=== PATIENT | female | born 1955 | race Caucasian/White ===

== ENCOUNTER 2019-04-01 07:42 | Day surgery (SDC) | payer OTHER ==
[2019-04-01] MEDS ORDERED: MEPERIDINE 100 MG INJ (09:36)
[2019-04-01] MEDS ORDERED: EPHEDrine SULFATE 50 MG/5 ML SYG (09:36)
[2019-04-01] MEDS ORDERED: PROPOFOL 20 ML (09:36)
[2019-04-01] MEDS ORDERED: EPHEDrine 25 MG/5 ML SYG (09:36)
[2019-04-01] MEDS ORDERED: LIDOCAINE 2% (SDV) 5 ML INJ (09:36)
[2019-04-01] MEDS ORDERED: CLINDAMYCIN 900 MG (PMX) 50 ML IVPB (10:01)
[2019-04-01] MEDS: BUPIVACAINE 0.5% (SDV) 30 ML INJ (10:40)
[2019-04-01] MEDS: POLYMYXIN/BACITRACIN 1L IRRIG IRR (11:10)
[2019-04-01] MEDS ORDERED: POLYMYXIN/BACITRACIN 1L IRRIG (11:11)
[2019-04-01] MEDS ORDERED: ONDANSETRON 4 MG INJ (11:14)
[2019-04-01] MEDS ORDERED: METOCLOPRAMIDE 10 MG INJ (11:14)
[2019-04-01] MEDS ORDERED: EPHEDrine 25 MG/5 ML SYG IV (12:00)
[2019-04-01] MEDS ORDERED: ONDANSETRON 4 MG INJ IV (12:00)
[2019-04-01] MEDS ORDERED: LABETALOL HCL 20MG INJ IV (12:00)
[2019-04-01] MEDS ORDERED: MIDAZOLAM 1 MG/ML 2 ML INJ IV (12:00)
[2019-04-01] MEDS ORDERED: FENTAnyl 50 MCG/ML VIAL IV ×3 (12:00)
[2019-04-01] MEDS ORDERED: MEPERIDINE 25 MG INJ IV (12:00)
[2019-04-01] MEDS ORDERED: DIPHENHYDRAMINE 50 MG INJ IV (12:00)
[2019-04-01] MEDS ORDERED: METOCLOPRAMIDE 10 MG INJ IV (12:00)
[2019-04-01] MEDS: hydrALAzine 20 MG INJ IV (12:25)
== END 2019-04-01 16:30 | disposition home or self-care (01) ==
LOC: SDS 07:42
DX: M20.12 Hallux valgus (acquired), left foot (principal); M21.612 Bunion of left foot; M20.42 Other hammer toe(s) (acquired), left foot; E11.9 Type 2 diabetes mellitus without complications; I10 Essential (primary) hypertension; Z79.4 Long term (current) use of insulin
CPT/HCPCS: 28285; 73630-LT; 82962; 88304; 88311